=== PATIENT | female | born 1980 | race Caucasian/White ===

== ENCOUNTER 2016-05-18 12:12 | Emergency (ER) | payer OTHER ==
--- NOTE | 2016-05-18 13:25 | DIAGNOSTIC IMAGING REPORT ---
PROCEDURE: XR CHEST 1 VIEW INDICATION: Chest pain, shortness of breath, SVT TECHNIQUE: Single view chest. 1230 hours COMPARISON: 06/27/2015 FINDINGS: The cardiopulmonary contour and central vasculature are stable, within normal limits. The lungs are clear without focal consolidation, pleural effusion or pneumothorax. The osseous structures are intact. IMPRESSION: 1. No evidence of acute cardiopulmonary disease.
--- NOTE | 2016-05-18 16:17 | ED ORDER SUMMARY ---
..... Patient: SANJUANA MCGILL OrderSheet [facility] VisitID: [id number] [place] [address] 36y, F Registration Date/Time: 05/18/2016 ORDER SHEET Weight: 58.5 kg (stated) Allergies: No Known Drug Allergy GENERAL ORDERS: Chest 1V Urgent (12:20 05/18/2016 Steven Gardner) (Ack 12:22 KHoerner) (14:43 DDean R.N.) Consumer Sales Representative (Continuous) (SOB) (12:05/18/2016 Steven Gardner) (12:21 KHoerner) CBC w Diff Urgent (12:05/18/2016 Steven Gardner) (Ack 12:22 SAGRARIOoerner) (13:44 LSullivan R.N.) CMP Urgent (12:05/18/2016 Steven Gardnre) (Ack 12:22 KHoerner) (13:44 LSullivan R.N.) UA-Culture if indicated Urgent (12:05/18/2016 Steven Gardner) (Ack 12:22 SAGRARIOoeclementinener) (13:52 LSullivan R.N.) PT with INR Urgent (12:05/18/2016 Steven Gardner) (Ack 12:22 SAGRARIOoerner) (13:44 LSullivan R.N.) BNP Urgent (12:05/18/2016 Steven Gardner) (Ack 12:22 SAGRARIOoerner) (13:44 LSullivan R.N.) D-Dimer Urgent (12:05/18/2016 Steven Gardner) (Ack 12:22 SAGRARIOoerner) (13:44 LSullivan R.N.) Urine Drug Screen Urgent (12:05/18/2016 Steven Gardner) (Ack 12:22 KHoerner) (13:52 LSullivan R.N.) Urine Urgent (12:05/18/2016 Steven Gardner) (Ack 12:22 SAGRARIOoegerald) (13:52 LSullivan R.N.) Troponin-I Urgent (12:20 05/18/2016 Steven Gardner) (Ack 12:22 KHoerner) (13:44 Ramos R.N.) Pulse oximeter (12:20 05/18/2016 Steven Gardner) (12:21 oerner) EKG - ER Stat (12:20 05/18/2016 Steven Gardner) (12:21 oerner) TSH Urgent (12:57 05/18/2016 Steven Gardner) (Ack 12:59 oerner) (13:44 LSullivan R.N.) Troponin-I Urgent (15:25 05/18/2016 Steven Gardner) (Ack 15:31 oerner) (15:39 ALawrence ER Tech1) MEDICATION ORDERS: - (propranolol 20 mg PO once now) (12:59 05/18/2016 Steven Gardner) (13:44 Ramos R.N.) Keflex PO 500 mg (NOW) (15:27 05/18/2016 Steven Gardner) (15:32 JSanders R.N.) IV FLUIDS: IV Saline Lock (12:20 05/18/2016 Steven Gardner) (12:27 Ramos R.N.) ORDER SHEET NOTES: [Electronically signed by Julee Treviño R.N. (16:56 05/18/2016)] [Electronically signed by John Stewart Dr. (03:01 05/20/2016)] [Electronically locked/signed by Julee Treviño R.N. (16:56 05/18/2016)]
--- NOTE | 2016-05-18 16:17 | ED ORDER SUMMARY ---
..... Patient: SANJUANA MCGILL OrderSheet [facility] VisitID: [id number] [place] [address] 36y, F Registration Date/Time: 05/18/2016 ORDER SHEET Weight: 58.5 kg (stated) Allergies: No Known Drug Allergy GENERAL ORDERS: Chest 1V Urgent (12:20 05/18/2016 Steven Gardner) (Ack 12:22 KHoerner) (14:43 DDean R.N.) Credit Compliance Officer (Continuous) (SOB) (12:05/18/2016 Steven Gardner) (12:21 KHoerner) CBC w Diff Urgent (12:05/18/2016 Steven Gardner) (Ack 12:22 SAGRARIOoerner) (13:44 LSullivan R.N.) CMP Urgent (12:05/18/2016 Steven Gardner) (Ack 12:22 KHoerner) (13:44 LSullivan R.N.) UA-Culture if indicated Urgent (12:05/18/2016 Steven Gardner) (Ack 12:22 SAGRARIOoeclementinener) (13:52 LSullivan R.N.) PT with INR Urgent (12:05/18/2016 Steven Gardner) (Ack 12:22 SAGRARIOoerner) (13:44 LSullivan R.N.) BNP Urgent (12:05/18/2016 Steven Gardner) (Ack 12:22 SAGRARIOoerner) (13:44 LSullivan R.N.) D-Dimer Urgent (12:05/18/2016 Steven Gardner) (Ack 12:22 SAGRARIOoerner) (13:44 LSullivan R.N.) Urine Drug Screen Urgent (12:05/18/2016 Steven Gardner) (Ack 12:22 KHoerner) (13:52 LSullivan R.N.) Urine Urgent (12:05/18/2016 Steven Gardner) (Ack 12:22 SAGRARIOoegerald) (13:52 LSullivan R.N.) Troponin-I Urgent (12:20 05/18/2016 Steven Gardner) (Ack 12:22 KHoerner) (13:44 Ramos R.N.) Pulse oximeter (12:20 05/18/2016 Steven Gardner) (12:21 oerner) EKG - ER Stat (12:20 05/18/2016 Steven Gardner) (12:21 oerner) TSH Urgent (12:57 05/18/2016 Steven Gardner) (Ack 12:59 oerner) (13:44 LSullivan R.N.) Troponin-I Urgent (15:25 05/18/2016 Steven Gardner) (Ack 15:31 oerner) (15:39 ALawrence ER Tech1) MEDICATION ORDERS: - (propranolol 20 mg PO once now) (12:59 05/18/2016 Steven Gardner) (13:44 Ramos R.N.) Keflex PO 500 mg (NOW) (15:27 05/18/2016 Steven Gardner) (15:32 JSanders R.N.) IV FLUIDS: IV Saline Lock (12:20 05/18/2016 Steven Gardner) (12:27 Ramos R.N.) ORDER SHEET NOTES: [Electronically signed by Julee Treviño R.N. (16:56 05/18/2016)] [Electronically signed by John Stewart Dr. (03:01 05/20/2016)] [Electronically locked/signed by Julee Treviño R.N. (16:56 05/18/2016)]
--- NOTE | 2016-05-18 16:17 | ED NURSING NOTES ---
Clinical Report - [facility] [address] [place] [address] 05/18/2016 12:13 Patient: SANJUANA MCGILL TRIAGE Triage time 12:19. Chief Complaint: CHEST PAIN and DISCOMFORT and SHORTNESS OF BREATH. --12:24 Mila Carr R.N. 12:18 05/18/16. BP: 118/72. HR: 92. RR: 20. O2 saturation: 100% on room air. Temp: 97.9 F. Pain level now: 010. --12:24 Mila Carr R.N. Weight: 58.5 kg stated. Height/Length: 64 inches Per Patient. BMI: 22.2. --12:20 Mila Carr R.N. Medications Singulair Oral. --12:22 Mila Carr R.N. Allergies No Known Drug Allergy. --12:22 Mila Carr R.N. History Arrived by EMS, and (M46). Primary physician (Tony Cannon for cardiology). This started just prior to arrival and today. PAST MEDICAL HX: Immunizations: up-to-date. Last normal menstrual period- Mar 29 LMP. Denies current . SOCIAL HX: Never smoker. Alcohol use; consumes wine by the glass occasionally. No drug use. NUTRITIONAL RISK ASSESSMENT: The nutritional risk assessment revealed no deficiencies. --12:24 Mila Carr R.N. Accompanied by family. --12:24 Mila Carr R.N. PROBLEMS: Coronary Artery Disease. Chest Pain. Post- cardio-vascular spasms. Eczema. Paroxysmal Supraventricular Tachycardia. Arrhythmia. Asthma. Heart Disease. --12:22 Mila Carr R.N. ADDITIONAL SURGERIES: Cardiac Catheterization. Sinus Surgery. Tonsillectomy. [place] teeth. --12:23 Mila Carr R.N. Interventions ID band on patient. To room. --12:24 Mila Carr R.N. PHYSICAL ASSESSMENT 12:24 05/18/16. GENERAL / NEURO / PSYCH: Alert. Oriented X 4. Appears anxious. --12:24 Mila Carr R.N. GENERAL / NEURO / PSYCH: ( Pt felt her heart racing, and converted herself using a straw. Medics gave 324 mg Aspirin asset management analyst). --12:26 Mila Carr R.N. NURSING PROGRESS NOTES 12:05/18/16. Patient identifiers checked. Call light placed in reach. Bed placed in lowest position. Patient ready for evaluation- chart flagged. --12:24 Mila Carr R.N. 12:27 05/18/2016 Site #1 started prior to arrival by EMS via IV in the right antecubital space with an 20g angiocath, with aseptic technique and good blood return; one attempt. Blood drawn: rainbow set. Labeled in the presence of the patient and sent to the lab. Saline lock flushed with 10 mL saline (drawn by Meme Ruano). --12:27 Mila Carr R.N. EKG time: (1226). EKG was ordered, performed by a tech and shown to the ED physician. --12:40 Marybeth Zhou ER Tech1 13:34 05/18/2016 Propranolol PO 20 mg given. Allergies verified and confirmed 5 rights. --13:44 Mila Carr R.N. 13:52 05/18/16. ( Upon entering room, patient and her family were looking sad, apparently their father just , patient states she thinks that's what might have triggered her episode today.). --13:52 Mila Carr R.N. 13:55 05/18/16. Checked patient name and birthdate. Clean catch urine collected with return of yellow-colored clear urine; sample sent to lab for urinalysis, culture, drug screen and HCG. Specimen labeled in the presence of the patient. --13:55 Mila Carr R.N. 15:32 05/18/2016 Keflex (Cephalexin) PO Capsules 500 mg given. Allergies verified and confirmed 5 rights. --15:32 Julee Treviño R.N. 13:10 05/18/16. BP: 113/89 (regular adult cuff) taken on the left arm, while lying. HR: 90. RR: 18 (regular). O2 saturation: 96% on room air. --15:39 Julee Treviño R.N. 13:55 05/18/16. BP: 120/84 (regular adult cuff) taken on the left arm, while lying. HR: 81. RR: 18. O2 saturation: 100% on room air. --15:40 Julee Treviño R.N. 14:55 05/18/16. BP: 101/89 (regular adult cuff) taken on the left arm, while lying. HR: 75. RR: 20. O2 saturation: 99%. --15:41 Julee Treviño R.N. DISPOSITION / DISCHARGE 16:51 05/18/2016 Site #1 removed upon discharge. Bandaid applied. --16:51 Julee Treviño R.N. 16:51 05/18/16. Condition at departure: improved. No learning barriers present. Discharge instructions provided and reviewed with the patient. Reviewed medication(s) side effects, precautions and dosing information. Patient verbalized understanding. Written instructions provided in Sinhala. The patient was discharged by the physician. She was discharged home and accompanied by friend. She left the Emergency Department ambulatory and via private vehicle. Driving (friend). ( Patient discharged in good condition, leaving with friend who is pole truck driver). --16:51 Julee Treviño R.N. 16:46 05/18/16. BP: 101/67 (regular adult cuff) taken on the left arm, while sitting. HR: 79. RR: 18 (regular). O2 saturation: 99% on room air. Temp: 98.3 F (oral). Pain level now: 0/10. --16:51 Julee Treviño R.N. Locked/Released at 05/18/2016 16:56 by Julee Treviño R.N.
--- NOTE | 2016-05-18 16:17 | ED CLINICAL REPORT ---
Clinical Report - Physicians/Mid Levels [facility] [address] [place] [address] 05/18/2016 12:13 Patient: SANJUANA MCGILL Time Seen: 1240. Arrived- By ambulance. Historian- patient. HISTORY OF PRESENT ILLNESS Chief Complaint: PALPITATIONS and CHEST DISCOMFORT. It is described as a fast heart beat. Modifying factors- (worsened by stress. better with vagal maneuvers). This started today and is still present but is better now. It was abrupt in onset and has been constant but is not gone now. Onset during emotional upset. The patient has had difficulty breathing and chest pain. No sweating episodes, fainting episodes, dizziness, tingling or muscle spasms. ( reports hx of SVT. Resolved with "blowing through a straw." states her father pasted away suddenly from a heart attack yesterday). Treatment ALARM OPERATOR: (vagal). Similar symptoms previously: Many times. Recent medical care: Not recently seen/assessed. REVIEW OF SYSTEMS All systems otherwise negative, except as recorded above. PAST HISTORY See nurses notes. Heart rhythm problems with history of SVT. Medications: Singulair Oral. Allergies: No Known Drug Allergy. SOCIAL HISTORY Never smoker. No alcohol use or drug use. No recent travel. Is a local resident. ADDITIONAL NOTES The nursing notes have been reviewed. PHYSICAL EXAM Vital Signs: 05/18/2016 12:18 BP: 118/72. HR: 92. RR: 20. O2 saturation: 100%. Temp: 97.9 F. Pain level now: 0/10. Blood pressure normal. Oxygen saturation normal. Appearance: Alert. Oriented X3. No acute distress. (blonde hair). Eyes: Pupils equal, round and reactive to light. Eyes normal inspection. ENT: Ears normal. Nose normal. Neck: Normal inspection. Neck supple. No JVD. CVS: Normal heart rate and rhythm. Heart sounds normal. Pulses normal. Respiratory: No respiratory distress. Breath sounds normal. Chest nontender. No rales, rhonchi or wheezes. Abdomen: Soft and nontender. Bowel sounds normal. No mass. Back: Normal external inspection. Skin: Skin warm and dry. Normal skin color. No rash. Normal skin turgor. Extremities: Extremities exhibit normal ROM. No lower extremity edema. Neuro: Oriented X 3. No motor deficit. No sensory deficit. LABS, X-RAYS, AND EKG EKG: No acute process. No acute ischemia. Normal sinus rhythm. Rate: 92. Normal P waves. Normal TIERA. Normal QRS complex. Normal axis. Normal ST and T waves, QT and QTc. The study has been interpreted contemporaneously by me. The study has been independently viewed by me. Artifact present. Chest X-ray: No acute disease. Normal lung markings present. Normal heart size. Mediastinum normal. Great vessels normal. No infiltrate. Views: AP (portable). The X-rays were independently viewed by me and interpreted contemporaneously by me. Laboratory Tests: UA-Culture if indicated: (NHAN: 05/18/2016 13:49) ( MsgRcvd 05/18/2016 14:11) Final results Test Result Flag Units (Reference) URINE COLOR YELLOW URINE APPEARANCE CLEAR URINE GLUCOSE NEGATIVE (NEGATIVE) URINE BILIRUBIN NEGATIVE (NEGATIVE) URINE KETONE NEGATIVE (NEGATIVE) URINE SPECIFIC GRAVITY <= 1.005 L (1.010-1.030) URINE PH 6.0 (5.0-8.0) URINE PROTEIN NEGATIVE (NEGATIVE) URINE UROBILINOGEN 0.2 EU/dL (0.2-1.0) URINE NITRITE NEGATIVE (NEGATIVE) URINE BLOOD 2+ (NEGATIVE) URINE LEUK ESTERASE POSITIVE (NEGATIVE) URINE RBC 0-1 rbc/hpf (0-1) URINE WBC 1-3 wbc/hpf (0-1) URINE EPITHELIAL CELLS 1-3 EPI/hpf (0-5) URINE BACTERIA FEW (1+) (NONE SEEN) URINE COMMENT CULTURE INDICATED 1-3 HYALINE CAST. 2+ MUCOUSURINE CULTURES ARE SET-UP BASED ON THE FOLLOWING CRITERIA:POSITIVE NITRITEPOSITIVE LEUKOCYTE ESTERASEGREATER THAN 10 WHITE BLOOD CELLSMODERATE (2+) OR GREATER BACTERIA Urine: (NHAN: 05/18/2016 13:49) ( MsgRcvd 05/18/2016 14:01) Final results Test Result Flag Units (Reference) URINE NEGATIVE CBC w Diff: (NHAN: 05/18/2016 12:20) ( MsgRcvd 05/18/2016 12:35) Final results Test Result Flag Units (Reference) WHITE BLOOD COUNT 3.9 L K/uL (4.5-11.5) RED BLOOD COUNT 4.78 M/uL (4.00-5.20) HEMOGLOBIN 14.1 gm/dL (12.0-16.0) HEMATOCRIT 41.9 % (36.0-46.0) MEAN CELL VOLUME 88 fL (80-100) MEAN CORPUSCULAR HGB 30 pg (26-34) MEAN CORPUSCULAR HGB CONC 34 g/dL (31-37) RED CELL DISTRIBUTION WIDTH 12.4 % (11.6-14.8) PLATELET COUNT 292 K/uL (150-400) NEUTROPHIL % 57.3 % (50-75) LYMPH % 31.4 % (25-40) MONO % 8.8 % (3-14) EOSINOPHIL % 1.7 % (0-4) BASOPHIL % 0.8 % (0-2) PT with INR: (NHAN: 05/18/2016 12:35) ( MsgRcvd 05/18/2016 12:51) Final results Test Result Flag Units (Reference) INR 1.0 (0.8-1.2) Low Intensity Therapy: INR 1.5-2.0 PT range 18.5-23.1Mod.Intensity Therapy: INR 2.0-3.0 PT range 23.1-31.5High Intensity Therapy: INR 2.5-3.5 PT range 27.4-35.5High Intensity Therapy 2: INR 3.0-4.0 PT range 31.5-39.3 D-DIMER QUANTITATIVE < 0.27 L ug/mLFEU (0.27-0.52) The primary value of this quantitative assay relates toits negative predictive value (i.e. exclusion) of pulmonaryembolism/deep vein thrombosis/DIC.Elevated levels of d-dimer may also occur with:, age, cancer, inflammation, liver disease,post-op, infection, hematoma, coronary disease, peripheralarteriopathy, bleeding disorders and thrombolytic treatment.Results should be correlated with other clinical andradiological data.Testing Methodology: Latex Immunoassay Troponin-I: (NHAN: 05/18/2016 15:37) ( [facility] 05/18/2016 16:06) Final results Test Result Flag Units (Reference) TROPONIN I 0.49 ng/mL (0.00-1.5) TROPONIN REFERENCE RANGE:<0.1 NEGATIVE0.1-1.5 INDETERMINANT>1.5 POSITIVE TSH: (NHAN: 05/18/2016 11:25) ( [facility] 05/18/2016 13:21) Final results Test Result Flag Units (Reference) THYROID STIMULATING HORMONE 1.406 uIU/mL (0.34-3.74) Urine Drug Screen: (NHAN: 05/18/2016 13:49) ( [facility] 05/18/2016 14:12) Final results Test Result Flag Units (Reference) AMPHETAMINE/METHAMPHETAMINE NEGATIVE (NEGATIVE) BARBITURATE NEGATIVE (NEGATIVE) BENZODIAZEPINE NEGATIVE (NEGATIVE) CANNABINOID NEGATIVE (NEGATIVE) COCAINE NEGATIVE (NEGATIVE) ECSTASY NEGATIVE (NEGATIVE) METHADONE NEGATIVE (NEGATIVE) OPIATE POSITIVE H (NEGATIVE) The urine drug screen is a qualitative screening test fordrug overdose and abuse. All screen results should beconsidered as presumptive.Drugs screened for are as follows:BenzodiazepinesCocaineAmphetamines/MetamphetaminesTHC (Tetrahydrocannabinol)OpiatesBarbituratesEcstasyMethadonePositive results are unconfirmed. For confirmation, notifythe lab for the specimen to be sent to the reference lab.All confirmations must be performed by a differentmethodology.The ingestion of natural herbal and plant productscontaining Ephedra/Ephedra metabolites can produce in urineone or more substances capable of cross reacting withamphetamine/methamphetamine immunoassays. These testsprovide a preliminary result only. A more specificalternative chemical method must be used to obtain aconfirmed analytical result. BNP: (NHAN: 05/18/2016 11:25) ( MsgRcvd 05/18/2016 12:51) Final results Test Result Flag Units (Reference) B-TYPE NATRIURETIC PEPTIDE 11.2 pg/ml (5-100) CMP: (NHAN: 05/18/2016 11:25) ( MsgRcvd 05/18/2016 12:55) Final results Test Result Flag Units (Reference) GLUCOSE 95 mg/dL (70-110) BUN 11 mg/dL (7-18) CREATININE 0.9 mg/dL (0.6-1.3) Estimated GFR >60 mL/min Estimated GFR- >60 mL/min Note: Persistent reduction over 3 months in eGFR<60 mL/min/1.73 m2 defines CKD. Patients with eGFR values>=60 mL/min/1.73 m2 may also have CKD if evidence ofpersistent proteinuria. Additional information may be foundat www.kidney.org. SODIUM 142 mmol/L (136-145) POTASSIUM 4.0 mmol/L (3.5-5.1) CHLORIDE 106 mmol/L (98-107) CARBON DIOXIDE 26 mmol/L (21-32) CALCIUM 9.2 mg/dL (8.5-10.1) TOTAL PROTEIN 7.1 g/dL (6.4-8.2) ALBUMIN 3.5 g/dL (3.3-5.0) BILIRUBIN, TOTAL 1.8 H mg/dL (0.0-1.0) ALKALINE PHOSPHATASE 31 L U/L (46-116) AST (SGOT) 16 U/L (15-37) ALT (SGPT) 16 U/L (12-78) TROPONIN I 0.37 ng/mL (0.00-1.5) TROPONIN REFERENCE RANGE:<0.1 NEGATIVE0.1-1.5 INDETERMINANT>1.5 POSITIVE . PROGRESS AND PROCEDURES Course of Care: he patient is a pleasant 36-year-old female presenting for evaluation of"a supraventricular tachycardia. "The patient reports long history of supraventricular tachycardia. The patient also reports havinga recentsignificant assistance. Patient reports that a family member has recently . This is likely thetrigger for the patient's SVT. The patient had spontaneously converted prior to arrival here in the emergency depahat sometimes her heart rate getsover 2 Patient states that today's heart rate was probably around 230 Patient is currently resting in bed and in no acute distress. Temperature studies will be ordered for evaluation of any acute abnormalities from the SVT oras a potential triggerfor the SVT. Patient is agreeable to the treatment and plan. No other acute abnormalities noted on examination or history. Workup is otherwise unremarkable. EKG does not show any acuteST segment changes. Chest x-ray is also noted to be clear. Troponin 1 is also noted to be normal. Second troponin also be ordered. Second troponin has been ordered. And noted to be normal. Patient is resting in bed and in no acute distress. Patient has an updated about the return of her laboratory studies as well as theresults of her EKG and chest x-ray. Patient is a stable outpatient candidate. No other abnormal Patient apparently is well-versed in SVT andisvery understanding and when she needs to return to the emergency department. Do not feel patient needs to be admitted to the hospital at this time or require further emergency department workup/evaluation. Patient is nontoxic and in no acute distress. Discussed with patient workup, diagnosis, home care, follow-up, and return precautions. All questions have been answered. The patient expressed understanding of these instructions and was agreeable to them. Disposition: Discharged. Condition: good. CLINICAL IMPRESSION 05/18/2016 12:18 BP: 118/72. HR: 92. RR: 20. O2 saturation: 100%. Temp: 97.9 F. Pain level now: 0/10. Blood pressure normal. Oxygen saturation normal. Palpitations (acute SVT). Grief reaction with depressed mood (acute). INSTRUCTIONS Warnings: GENERAL WARNINGS: Return or contact your physician immediately if your condition worsens or changes unexpectedly, if not improving as expected, or if other problems arise. SPECIFICALLY, return if you develop chest, neck, jaw, shoulder, arm, or back pain, difficulty breathing, a fluttering sensation in your chest, lightheadedness, fainting, excessive fatigue, or sudden sweating. Your Current Medications: CONTINUE TAKING THE FOLLOWING MEDICATIONS: Singulair Oral. Prescription Medications: Propranolol 20 mg: take 1 orally every 8 hours. Dispense ten (10). No refills. (as needed for palpitations) Follow-up: Return to the emergency department as needed. Follow up with your doctor in three days. Reason for referral: recheck today's concerns. Summary of care provided to patient via paper. Screening today revealed the patient's blood pressure to be in the normal range. The patient should follow up with a primary care provider for blood pressure management. Understanding of the discharge instructions verbalized by patient. (Electronically signed by John Stewart Dr. 05/20/2016 3:01)
--- NOTE | 2016-05-18 16:17 | ED NURSING NOTES ---
Clinical Report - Nurses [facility] [address] [place] [address] 05/18/2016 12:13 Patient: SANJUANA MCGILL TRIAGE Triage time 12:19. Chief Complaint: CHEST PAIN and DISCOMFORT and SHORTNESS OF BREATH. --12:24 Mila Carr R.N. 12:18 05/18/16. BP: 118/72. HR: 92. RR: 20. O2 saturation: 100% on room air. Temp: 97.9 F. Pain level now: 010. --12:24 Mila Carr R.N. Weight: 58.5 kg stated. Height/Length: 64 inches Per Patient. BMI: 22.2. --12:20 Mila Carr R.N. Medications Singulair Oral. --12:22 Mila Carr R.N. Allergies No Known Drug Allergy. --12:22 Mila Carr R.N. History Arrived by EMS, and (M46). Primary physician (Tony Cannon for cardiology). This started just prior to arrival and today. PAST MEDICAL HX: Immunizations: up-to-date. Last normal menstrual period- Mar 29 LMP. Denies current . SOCIAL HX: Never smoker. Alcohol use; consumes wine by the glass occasionally. No drug use. NUTRITIONAL RISK ASSESSMENT: The nutritional risk assessment revealed no deficiencies. --12:24 Mila Carr R.N. Accompanied by family. --12:24 Mila Carr R.N. PROBLEMS: Coronary Artery Disease. Chest Pain. Post- cardio-vascular spasms. Eczema. Paroxysmal Supraventricular Tachycardia. Arrhythmia. Asthma. Heart Disease. --12:22 Mila Carr R.N. ADDITIONAL SURGERIES: Cardiac Catheterization. Sinus Surgery. Tonsillectomy. [place] teeth. --12:23 Mila Carr R.N. Interventions ID band on patient. To room. --12:24 Mila Carr R.N. PHYSICAL ASSESSMENT 12:24 05/18/16. GENERAL / NEURO / PSYCH: Alert. Oriented X 4. Appears anxious. --12:24 Mila Carr R.N. GENERAL / NEURO / PSYCH: ( Pt felt her heart racing, and converted herself using a straw. Medics gave 324 mg Aspirin cut filer). --12:26 Mila Carr R.N. NURSING PROGRESS NOTES 12:05/18/16. Patient identifiers checked. Call light placed in reach. Bed placed in lowest position. Patient ready for evaluation- chart flagged. --12:24 Mila Carr R.N. 12:27 05/18/2016 Site #1 started prior to arrival by EMS via IV in the right antecubital space with an 20g angiocath, with aseptic technique and good blood return; one attempt. Blood drawn: rainbow set. Labeled in the presence of the patient and sent to the lab. Saline lock flushed with 10 mL saline (drawn by Meme Ruano). --12:27 Mila Carr R.N. EKG time: (1226). EKG was ordered, performed by a tech and shown to the ED physician. --12:40 Marybeth Zhou ER Tech1 13:34 05/18/2016 Propranolol PO 20 mg given. Allergies verified and confirmed 5 rights. --13:44 Mila Carr R.N. 13:52 05/18/16. ( Upon entering room, patient and her family were looking sad, apparently their father just , patient states she thinks that's what might have triggered her episode today.). --13:52 Mila Carr R.N. 13:55 05/18/16. Checked patient name and birthdate. Clean catch urine collected with return of yellow-colored clear urine; sample sent to lab for urinalysis, culture, drug screen and HCG. Specimen labeled in the presence of the patient. --13:55 Mila Carr R.N. 15:32 05/18/2016 Keflex (Cephalexin) PO Capsules 500 mg given. Allergies verified and confirmed 5 rights. --15:32 Julee Treviño R.N. 13:10 05/18/16. BP: 113/89 (regular adult cuff) taken on the left arm, while lying. HR: 90. RR: 18 (regular). O2 saturation: 96% on room air. --15:39 Julee Treviño R.N. 13:55 05/18/16. BP: 120/84 (regular adult cuff) taken on the left arm, while lying. HR: 81. RR: 18. O2 saturation: 100% on room air. --15:40 Julee Treviño R.N. 14:55 05/18/16. BP: 101/89 (regular adult cuff) taken on the left arm, while lying. HR: 75. RR: 20. O2 saturation: 99%. --15:41 Julee Treviño R.N. DISPOSITION / DISCHARGE 16:51 05/18/2016 Site #1 removed upon discharge. Bandaid applied. --16:51 Julee Treviño R.N. 16:51 05/18/16. Condition at departure: improved. No learning barriers present. Discharge instructions provided and reviewed with the patient. Reviewed medication(s) side effects, precautions and dosing information. Patient verbalized understanding. Written instructions provided in Syriac. The patient was discharged by the physician. She was discharged home and accompanied by friend. She left the Emergency Department ambulatory and via private vehicle. Driving (friend). ( Patient discharged in good condition, leaving with friend who is long haul truck driver). --16:51 Julee Treviño R.N. 16:46 05/18/16. BP: 101/67 (regular adult cuff) taken on the left arm, while sitting. HR: 79. RR: 18 (regular). O2 saturation: 99% on room air. Temp: 98.3 F (oral). Pain level now: 0/10. --16:51 Julee Treviño R.N. Locked/Released at 05/18/2016 16:56 by Julee Treviño R.N.
--- NOTE | 2016-05-20 03:02 | ED MAR SUMMARY ---
..... Medication Administration Record [facility] [address] [place] [address] Patient: SANJUANA MCGILL Visit ID: [id number] 36y, F Weight: 58.5 kg Height/Length: 64 in BMI: 22.2 ALLERGIES: No Known Drug Allergy Given 13:34 05/18/2016 Mila Carr RKendrick Medication Administered: PROPRANOLOL [PO], Dose: 20 mg PO. Medication Ordered: - (propranolol 20 mg PO once now). Given 15:32 05/18/2016 Julee Treviño RKendrick Medication Administered: KEFLEX [PO] (CEPHALEXIN), Dose: 500 mg Capsules PO. Medication Ordered: Keflex PO 500 mg (NOW).
--- NOTE | 2016-05-20 03:02 | ED MED RECONCILIATION SUMMARY ---
Patient: ALEXANDERHUANHUBERT TRUJILLOSSIE Sincere Medication Reconciliation Report [facility] VisitID: [id number] [address] [place] [address] 36y, F Registration Date/Time: 05/18/2016 Weight: 58.5 kg Height/Length: 64 in. BMI: 22.2 ALLERGIES: No Known Drug Allergy The patient's Home Medications are listed below: CONTINUE TAKING THE FOLLOWING MEDICATIONS: Singulair Oral The source(s) of the original Home Medication information: Not obtained. The following Medications were given to the patient in the Emergency Department: Propranolol [PO] PO 20 mg, administered: 05/18/2016 1:34:00 PM Keflex [PO] PO 500 mg, administered: 05/18/2016 3:32:00 PM The following Medications were prescribed to the patient: Propranolol 20 mg: take 1 orally every 8 hours. Dispense ten (10). No refills.(as needed for palpitations) -- John Stewart Dr.
--- NOTE | 2016-05-20 03:02 | ED MED RECONCILIATION SUMMARY ---
Patient: ALEXANDERHUANHUBERT TRUJILLOSSIE Sincere Medication Reconciliation Report [facility] VisitID: [id number] [address] [place] [address] 36y, F Registration Date/Time: 05/18/2016 Weight: 58.5 kg Height/Length: 64 in. BMI: 22.2 ALLERGIES: No Known Drug Allergy The patient's Home Medications are listed below: CONTINUE TAKING THE FOLLOWING MEDICATIONS: Singulair Oral The source(s) of the original Home Medication information: Not obtained. The following Medications were given to the patient in the Emergency Department: Propranolol [PO] PO 20 mg, administered: 05/18/2016 1:34:00 PM Keflex [PO] PO 500 mg, administered: 05/18/2016 3:32:00 PM The following Medications were prescribed to the patient: Propranolol 20 mg: take 1 orally every 8 hours. Dispense ten (10). No refills.(as needed for palpitations) -- John Stewart Dr.
--- NOTE | 2016-05-20 03:02 | ED DISCHARGE INSTRUCTIONS ---
Patient: SANJUANA MCGILL General Instructions [facility] VisitID: [id number] [address] [place] [address] 36y, F Registration Date/Time: 05/18/2016 05/18/2016 12:18 BP: 118/72. HR: 92. RR: 20. O2 saturation: 100%. Temp: 97.9 F. Pain level now: 0/10. Blood pressure normal. Oxygen saturation normal. Palpitations (acute SVT). Grief reaction with depressed mood (acute). INSTRUCTIONS Warnings: GENERAL WARNINGS: Return or contact your physician immediately if your condition worsens or changes unexpectedly, if not improving as expected, or if other problems arise. SPECIFICALLY, return if you develop chest, neck, jaw, shoulder, arm, or back pain, difficulty breathing, a fluttering sensation in your chest, lightheadedness, fainting, excessive fatigue, or sudden sweating. Your Current Medications: CONTINUE TAKING THE FOLLOWING MEDICATIONS: Singulair Oral. Prescription Medications: Propranolol 20 mg: take 1 orally every 8 hours. Dispense ten (10). No refills. (as needed for palpitations) Follow-up: Return to the emergency department as needed. Follow up with your doctor in three days. Reason for referral: recheck today's concerns. Summary of care provided to patient via paper. Screening today revealed the patient's blood pressure to be in the normal range. The patient should follow up with a primary care provider for blood pressure management. Understanding of the discharge instructions verbalized by patient. ADDITIONAL INFORMATION Heart Palpitations Palpitations refers to the feeling that your heart is beating hard, fast or irregular. Some people describe it as "pounding" or "skipped beats". Palpitations may occur in persons with heart disease, but can also occur in healthy persons. Heart-Related Causes: Arrhythmia (a change from the heart's normal rhythm) Disease of the heart valves Piv-Hnwev-Svwjbfr Causes: Certain medicines (such as asthma inhalers and decongestants) Some herbal supplements, energy drinks and pills, and weight loss pills Illegal stimulant drugs (such as cocaine, crank, methamphetamine, PCP) Caffeine, alcohol and tobacco Medical conditions such as thyroid disease, anemia, anxiety and panic disorder Sometimes the cause cannot be found. Home Care: Avoid excess caffeine, alcohol, tobacco and any stimulant drugs. Tell your doctor about any prescription or cwzs-hku-fggwpob or herbal medicines you take. Follow Up with your doctor or as advised by our staff. Get Prompt Medical Attention if any of the following occur together with palpitations: Weakness, dizziness, light-headed or fainting Chest pain or shortness of breath Rapid heart rate (over 120 beats per minute, at rest) Palpitations that lasts over 20 minutes Weakness of an arm or leg or one side of the face Difficulty with speech or vision Arrhythmia Electrical impulses cause the normal heart to beat 60 to 100 times a minute. These impulses come from a natural pacemaker deep inside the heart muscle. Each impulse causes the heart muscle to contract. This causes the blood to flow through the heart and out to the tissues and organs of your body. An arrhythmia is a change from the normal speed or pattern of these electrical impulses. This can cause the heart to beat too fast (tachycardia); or too slow (bradycardia); or in an unsteady pattern (irregular rhythm). Symptoms of arrhythmias Different people experience arrhythmias differently. Sometimes they may not have symptoms, but just notice a change in their pulse. Symptoms can include: Fluttering feeling in the chest Shortness of breath Chest pain or pressure Lightheadedness or dizziness Fainting or nearly fainting Palpitations Tiredness, fatigue, or weakness Causes of arrhythmias Arrhythmias are most often due to heart disease such as: Coronary artery disease (arteriosclerosis) Disease of the heart valves Enlarged heart High blood pressure Heart failure Other causes ofarrhythmia include: Certain medicines (such as asthma inhalers and decongestants) Some herbal supplements Cardiac stimulant drugs (such as cocaine, amphetamine, diet pills, certain decongestant cold medicines, caffeine, and nicotine) Excessive alcohol use Medical conditions such as thyroid disease, anemia, anxiety, and panic disorder Arrythmias can often be prevented. The cause and type of arrhythmia determines the best treatment. Sometimes your doctor may want to monitor your heart rate over a 24-hour period or longer. This can help identify the cause of your arrhythmia and find the best treatment. This can be done with a Holter monitor,a portable EKG recording device attached by wires to your chest. You can carry this with you as you perform your routine activities during the monitoring period. Home care Avoid cardiac stimulants (such as cocaine, amphetamine, diet pills, certain decongestant cold medicines, caffeine, and nicotine). If you smoke, stop smoking. Contact your doctor or a local stop-smoking program for help. Tell your doctor about any prescription, hppt-qrc-woerlsx or herbal medicines you take. These may be affecting your heart rhythm. Follow-up care Follow up with your health care provider or as advised by our staff. If a Holter monitor has been recommended, contact the cardiologistyou have been referred toas soon as you canpick up the device. Other outpatient tests may also be arranged for you at that time. Call 911 This is the fastest and safest way to get to the emergency department. The paramedics can also start treatment on the way to the hospital, if needed. Don'twait until your symptoms are severe to call 911. Other reasons to call 911 besides chest pain include: Chest, shoulder, arm, neck, or back pain Shortness of breath Feeling lightheaded, faint, or dizzy Rapid heart beat Slower than usual heart rate compared to your normal Angina withweakness, dizziness, fainting, heavy sweating, nausea, or vomiting Extreme drowsiness, or confusion Weakness of an arm or leg or one side of the face Difficulty with speech or vision When to seek medical care Remember, things are not always like they are on TV. Sometimes it is not so obvious. You may only feel weak or just "not right." If it is not clear or if you have any doubt, call for advice. Seek help for chest pain, or it feels different from usual, even if your symptoms are mild. Do not drive yourself. Have someone else drive. If no one can drive you, call 911. If your doctor has given you medicines to take when you have symptoms, take them, but do not delay getting help while trying to find them. Do not delay. Fast diagnosis and treatment can prevent or limit the amount of heart damage during a heart attack or stroke. Do not go to your doctor's ofice or a clinic because they will not be able to provide all of the testing or treatment required for this condition. Grief Reaction Grief is the feeling that we all have when we lose someone that has been important in our life. Grief can last from months to years. The amount of time depends on different factors. These include how close the person was to you, and how much support you have through the grief process. Normal physical reactions to grief include loss of appetite or overeating, changes in weight, trouble getting to sleep or staying asleep, hair loss, stomach upset, cramping, diarrhea. Normal emotional reactions to grief include sadness, anxiety, feeling depressed or helpless, and difficulty concentrating. There may be a tendency to want to overwork or become so busy that you distract yourself from the intense pain you feel. Or you maylose all interest in work. Home Care: Allow yourself to feel the pain of your loss. For some, this can be a houser part of healing grief. Talk about your pain with others who understand. Share good memories that involve the person you lost. Take time for yourself. Make it a point to do things that you enjoy (gardening, walking in nature, going to a movie, etc.). Take care of your physical body. Eat a balanced diet (low in saturated fat and high in fruits and vegetables) and establish an exercise plan at least 3 times a week for 30 minutes. Even mild-moderate exercise (like brisk walking) can make you feel better. Get plenty of sleep. Avoid the use of alcohol and drugs to cover your emotional pain. This only slows down the emotional healing process. Do not isolate yourself from others. Have daily contact with family or friends. Talk about your loss to those closest to you. For additional support, meet with your shed boss/instrument sterilizer/rabbi, a counselor or therapist, or your own doctor. Consider joining a grief support group. Ask your doctor or our staff for information on how to find one in your area. If you have been prescribed a medicine to help with your symptoms, take it only as directed. Do not use it with alcohol. Follow Up with your doctor or as advised by our staff if you feel that your grief reaction is not responding to self-help measures. You may benefit from working with a trained counselor or therapist. Get Prompt Medical Attention if any of the following occur: Worsening symptoms Unable to eat or sleep for three days in a row Feeling extreme depression, fear, anxiety, or anger toward yourself or others Feeling out of control Feeling that you may try to harm yourself Propranolol Hydrochloride Oral tablet What is this medicine? PROPRANOLOL (proe PRAN oh lole) is a beta-luis. Beta-blockers reduce the workload on the heart and help it to beat more regularly. This medicine is used to treat high blood pressure, to control irregular heart rhythms (arrhythmias) and to relieve chest pain caused by angina. It may also be helpful after a heart attack. This medicine is also used to prevent migraine headaches, relieve uncontrollable shaking (tremors), and help certain problems related to the thyroid gland and adrenal gland. How should I use this medicine? Take this medicine by mouth with a glass of water. Follow the directions on the prescription label. Take your doses at regular intervals. Do not take your medicine more often than directed. Do not stop taking except on your the advice of your doctor or health healthcare associate. Talk to your home advisor regarding the use of this medicine in children. Special care may be needed. What side effects may I notice from receiving this medicine? Side effects that you should report to your doctor or health healthcare associate as soon as possible: allergic reactions like skin rash, itching or hives, swelling of the face, lips, or tongue breathing problems changes in blood sugar cold hands or feet difficulty sleeping, nightmares dry peeling skin hallucinations muscle cramps or weakness slow heart rate swelling of the legs and ankles vomiting Side effects that usually do not require medical attention (report to your doctor or health healthcare associate if they continue or are bothersome): change in sex drive or performance diarrhea dry sore eyes hair loss nausea weak or tired What may interact with this medicine? Do not take this medicine with any of the following medications: feverfew phenothiazines like chlorpromazine, mesoridazine, prochlorperazine, thioridazine sotalol This medicine may also interact with the following medications: aluminum hydroxide gel antipyrine barbiturates like phenobarbital cimetidine ciprofloxacin diazepam fluconazole haloperidol isoniazid medicines for cholesterol like cholestyramine or colestipol medicines to control heart rhythm medicines for high blood pressure medicines for HIV medicines for mental depression medicines for migraine headache like almotriptan, eletriptan, frovatriptan, naratriptan, rizatriptan, sumatriptan, zolmitriptan NSAIDs, medicines for pain and inflammation, like ibuprofen or naproxen phenytoin rifampin teniposide theophylline thyroid medicines tolbutamide warfarin zileuton What if I miss a dose? If you miss a dose, take it as soon as you can. If it is almost time for your next dose, take only that dose. Do not take double or extra doses. Where should I keep my medicine? Keep out of the reach of children. Store at room temperature between 15 and 30 degrees C (59 and 86 degrees F). Protect from light. Throw away any unused medicine after the expiration date. What should I tell my health care provider before I take this medicine? They need to know if you have any of these conditions: circulation problems or blood vessel disease diabetes history of heart attack or heart disease, vasospastic angina kidney disease liver disease lung or breathing disease, like asthma or emphysema pheochromocytoma slow heart rate thyroid disease an unusual or allergic reaction to propranolol, other beta-blockers, medicines, foods, dyes, or preservatives or trying to get breast-feeding What should I watch for while using this medicine? Visit your doctor or health healthcare associate for regular check ups. Check your blood pressure and pulse rate regularly. Ask your health healthcare associate what your blood pressure and pulse rate should be, and when you should contact them. You may get drowsy or dizzy. Do not drive, use machinery, or do anything that needs mental alertness until you know how this drug affects you. Do not stand or sit up quickly, especially if you are an older patient. This reduces the risk of dizzy or fainting spells. Alcohol can make you more drowsy and dizzy. Avoid alcoholic drinks. This medicine can affect blood sugar levels. If you have diabetes, check with your doctor or health healthcare associate before you change your diet or the dose of your diabetic medicine. Do not treat yourself for coughs, colds, or pain while you are taking this medicine without asking your doctor or health healthcare associate for advice. Some ingredients may increase your blood pressure. You have been given the following additional information: Palpitations Arrhythmia, Unspecified Grief Reaction Propranolol Hydrochloride Oral tablet (Electronically signed by John Stewart Dr. 05/20/2016 3:01)
--- NOTE | 2016-05-20 03:02 | ED MAR SUMMARY ---
..... Medication Administration Record [facility] [address] [place] [address] Patient: SANJUANA MCGILL Visit ID: [id number] 36y, F Weight: 58.5 kg Height/Length: 64 in BMI: 22.2 ALLERGIES: No Known Drug Allergy Given 13:34 05/18/2016 Mila Carr RKendrick Medication Administered: PROPRANOLOL [PO], Dose: 20 mg PO. Medication Ordered: - (propranolol 20 mg PO once now). Given 15:32 05/18/2016 Julee rTeviño RKendrick Medication Administered: KEFLEX [PO] (CEPHALEXIN), Dose: 500 mg Capsules PO. Medication Ordered: Keflex PO 500 mg (NOW).
--- NOTE | 2016-05-20 03:02 | ED DISCHARGE INSTRUCTIONS ---
Patient: SANJUANA MCGILL General Instructions [facility] VisitID: [id number] [address] [place] [address] 36y, F Registration Date/Time: 05/18/2016 05/18/2016 12:18 BP: 118/72. HR: 92. RR: 20. O2 saturation: 100%. Temp: 97.9 F. Pain level now: 0/10. Blood pressure normal. Oxygen saturation normal. Palpitations (acute SVT). Grief reaction with depressed mood (acute). INSTRUCTIONS Warnings: GENERAL WARNINGS: Return or contact your physician immediately if your condition worsens or changes unexpectedly, if not improving as expected, or if other problems arise. SPECIFICALLY, return if you develop chest, neck, jaw, shoulder, arm, or back pain, difficulty breathing, a fluttering sensation in your chest, lightheadedness, fainting, excessive fatigue, or sudden sweating. Your Current Medications: CONTINUE TAKING THE FOLLOWING MEDICATIONS: Singulair Oral. Prescription Medications: Propranolol 20 mg: take 1 orally every 8 hours. Dispense ten (10). No refills. (as needed for palpitations) Follow-up: Return to the emergency department as needed. Follow up with your doctor in three days. Reason for referral: recheck today's concerns. Summary of care provided to patient via paper. Screening today revealed the patient's blood pressure to be in the normal range. The patient should follow up with a primary care provider for blood pressure management. Understanding of the discharge instructions verbalized by patient. ADDITIONAL INFORMATION Heart Palpitations Palpitations refers to the feeling that your heart is beating hard, fast or irregular. Some people describe it as "pounding" or "skipped beats". Palpitations may occur in persons with heart disease, but can also occur in healthy persons. Heart-Related Causes: Arrhythmia (a change from the heart's normal rhythm) Disease of the heart valves Tyo-Yejde-Ovfmnzd Causes: Certain medicines (such as asthma inhalers and decongestants) Some herbal supplements, energy drinks and pills, and weight loss pills Illegal stimulant drugs (such as cocaine, crank, methamphetamine, PCP) Caffeine, alcohol and tobacco Medical conditions such as thyroid disease, anemia, anxiety and panic disorder Sometimes the cause cannot be found. Home Care: Avoid excess caffeine, alcohol, tobacco and any stimulant drugs. Tell your doctor about any prescription or awgu-uzl-tjzmuhj or herbal medicines you take. Follow Up with your doctor or as advised by our staff. Get Prompt Medical Attention if any of the following occur together with palpitations: Weakness, dizziness, light-headed or fainting Chest pain or shortness of breath Rapid heart rate (over 120 beats per minute, at rest) Palpitations that lasts over 20 minutes Weakness of an arm or leg or one side of the face Difficulty with speech or vision Arrhythmia Electrical impulses cause the normal heart to beat 60 to 100 times a minute. These impulses come from a natural pacemaker deep inside the heart muscle. Each impulse causes the heart muscle to contract. This causes the blood to flow through the heart and out to the tissues and organs of your body. An arrhythmia is a change from the normal speed or pattern of these electrical impulses. This can cause the heart to beat too fast (tachycardia); or too slow (bradycardia); or in an unsteady pattern (irregular rhythm). Symptoms of arrhythmias Different people experience arrhythmias differently. Sometimes they may not have symptoms, but just notice a change in their pulse. Symptoms can include: Fluttering feeling in the chest Shortness of breath Chest pain or pressure Lightheadedness or dizziness Fainting or nearly fainting Palpitations Tiredness, fatigue, or weakness Causes of arrhythmias Arrhythmias are most often due to heart disease such as: Coronary artery disease (arteriosclerosis) Disease of the heart valves Enlarged heart High blood pressure Heart failure Other causes ofarrhythmia include: Certain medicines (such as asthma inhalers and decongestants) Some herbal supplements Cardiac stimulant drugs (such as cocaine, amphetamine, diet pills, certain decongestant cold medicines, caffeine, and nicotine) Excessive alcohol use Medical conditions such as thyroid disease, anemia, anxiety, and panic disorder Arrythmias can often be prevented. The cause and type of arrhythmia determines the best treatment. Sometimes your doctor may want to monitor your heart rate over a 24-hour period or longer. This can help identify the cause of your arrhythmia and find the best treatment. This can be done with a Holter monitor,a portable EKG recording device attached by wires to your chest. You can carry this with you as you perform your routine activities during the monitoring period. Home care Avoid cardiac stimulants (such as cocaine, amphetamine, diet pills, certain decongestant cold medicines, caffeine, and nicotine). If you smoke, stop smoking. Contact your doctor or a local stop-smoking program for help. Tell your doctor about any prescription, wphs-mwy-qrfdjik or herbal medicines you take. These may be affecting your heart rhythm. Follow-up care Follow up with your health care provider or as advised by our staff. If a Holter monitor has been recommended, contact the cardiologistyou have been referred toas soon as you canpick up the device. Other outpatient tests may also be arranged for you at that time. Call 911 This is the fastest and safest way to get to the emergency department. The paramedics can also start treatment on the way to the hospital, if needed. Don'twait until your symptoms are severe to call 911. Other reasons to call 911 besides chest pain include: Chest, shoulder, arm, neck, or back pain Shortness of breath Feeling lightheaded, faint, or dizzy Rapid heart beat Slower than usual heart rate compared to your normal Angina withweakness, dizziness, fainting, heavy sweating, nausea, or vomiting Extreme drowsiness, or confusion Weakness of an arm or leg or one side of the face Difficulty with speech or vision When to seek medical care Remember, things are not always like they are on TV. Sometimes it is not so obvious. You may only feel weak or just "not right." If it is not clear or if you have any doubt, call for advice. Seek help for chest pain, or it feels different from usual, even if your symptoms are mild. Do not drive yourself. Have someone else drive. If no one can drive you, call 911. If your doctor has given you medicines to take when you have symptoms, take them, but do not delay getting help while trying to find them. Do not delay. Fast diagnosis and treatment can prevent or limit the amount of heart damage during a heart attack or stroke. Do not go to your doctor's ofice or a clinic because they will not be able to provide all of the testing or treatment required for this condition. Grief Reaction Grief is the feeling that we all have when we lose someone that has been important in our life. Grief can last from months to years. The amount of time depends on different factors. These include how close the person was to you, and how much support you have through the grief process. Normal physical reactions to grief include loss of appetite or overeating, changes in weight, trouble getting to sleep or staying asleep, hair loss, stomach upset, cramping, diarrhea. Normal emotional reactions to grief include sadness, anxiety, feeling depressed or helpless, and difficulty concentrating. There may be a tendency to want to overwork or become so busy that you distract yourself from the intense pain you feel. Or you maylose all interest in work. Home Care: Allow yourself to feel the pain of your loss. For some, this can be a houser part of healing grief. Talk about your pain with others who understand. Share good memories that involve the person you lost. Take time for yourself. Make it a point to do things that you enjoy (gardening, walking in nature, going to a movie, etc.). Take care of your physical body. Eat a balanced diet (low in saturated fat and high in fruits and vegetables) and establish an exercise plan at least 3 times a week for 30 minutes. Even mild-moderate exercise (like brisk walking) can make you feel better. Get plenty of sleep. Avoid the use of alcohol and drugs to cover your emotional pain. This only slows down the emotional healing process. Do not isolate yourself from others. Have daily contact with family or friends. Talk about your loss to those closest to you. For additional support, meet with your dye house helper/deck steward/rabbi, a counselor or therapist, or your own doctor. Consider joining a grief support group. Ask your doctor or our staff for information on how to find one in your area. If you have been prescribed a medicine to help with your symptoms, take it only as directed. Do not use it with alcohol. Follow Up with your doctor or as advised by our staff if you feel that your grief reaction is not responding to self-help measures. You may benefit from working with a trained counselor or therapist. Get Prompt Medical Attention if any of the following occur: Worsening symptoms Unable to eat or sleep for three days in a row Feeling extreme depression, fear, anxiety, or anger toward yourself or others Feeling out of control Feeling that you may try to harm yourself Propranolol Hydrochloride Oral tablet What is this medicine? PROPRANOLOL (proe PRAN oh lole) is a beta-luis. Beta-blockers reduce the workload on the heart and help it to beat more regularly. This medicine is used to treat high blood pressure, to control irregular heart rhythms (arrhythmias) and to relieve chest pain caused by angina. It may also be helpful after a heart attack. This medicine is also used to prevent migraine headaches, relieve uncontrollable shaking (tremors), and help certain problems related to the thyroid gland and adrenal gland. How should I use this medicine? Take this medicine by mouth with a glass of water. Follow the directions on the prescription label. Take your doses at regular intervals. Do not take your medicine more often than directed. Do not stop taking except on your the advice of your doctor or health care management coordinator. Talk to your exercise physiologist regarding the use of this medicine in children. Special care may be needed. What side effects may I notice from receiving this medicine? Side effects that you should report to your doctor or health care management coordinator as soon as possible: allergic reactions like skin rash, itching or hives, swelling of the face, lips, or tongue breathing problems changes in blood sugar cold hands or feet difficulty sleeping, nightmares dry peeling skin hallucinations muscle cramps or weakness slow heart rate swelling of the legs and ankles vomiting Side effects that usually do not require medical attention (report to your doctor or health care management coordinator if they continue or are bothersome): change in sex drive or performance diarrhea dry sore eyes hair loss nausea weak or tired What may interact with this medicine? Do not take this medicine with any of the following medications: feverfew phenothiazines like chlorpromazine, mesoridazine, prochlorperazine, thioridazine sotalol This medicine may also interact with the following medications: aluminum hydroxide gel antipyrine barbiturates like phenobarbital cimetidine ciprofloxacin diazepam fluconazole haloperidol isoniazid medicines for cholesterol like cholestyramine or colestipol medicines to control heart rhythm medicines for high blood pressure medicines for HIV medicines for mental depression medicines for migraine headache like almotriptan, eletriptan, frovatriptan, naratriptan, rizatriptan, sumatriptan, zolmitriptan NSAIDs, medicines for pain and inflammation, like ibuprofen or naproxen phenytoin rifampin teniposide theophylline thyroid medicines tolbutamide warfarin zileuton What if I miss a dose? If you miss a dose, take it as soon as you can. If it is almost time for your next dose, take only that dose. Do not take double or extra doses. Where should I keep my medicine? Keep out of the reach of children. Store at room temperature between 15 and 30 degrees C (59 and 86 degrees F). Protect from light. Throw away any unused medicine after the expiration date. What should I tell my health care provider before I take this medicine? They need to know if you have any of these conditions: circulation problems or blood vessel disease diabetes history of heart attack or heart disease, vasospastic angina kidney disease liver disease lung or breathing disease, like asthma or emphysema pheochromocytoma slow heart rate thyroid disease an unusual or allergic reaction to propranolol, other beta-blockers, medicines, foods, dyes, or preservatives or trying to get breast-feeding What should I watch for while using this medicine? Visit your doctor or health care management coordinator for regular check ups. Check your blood pressure and pulse rate regularly. Ask your health care management coordinator what your blood pressure and pulse rate should be, and when you should contact them. You may get drowsy or dizzy. Do not drive, use machinery, or do anything that needs mental alertness until you know how this drug affects you. Do not stand or sit up quickly, especially if you are an older patient. This reduces the risk of dizzy or fainting spells. Alcohol can make you more drowsy and dizzy. Avoid alcoholic drinks. This medicine can affect blood sugar levels. If you have diabetes, check with your doctor or health care management coordinator before you change your diet or the dose of your diabetic medicine. Do not treat yourself for coughs, colds, or pain while you are taking this medicine without asking your doctor or health care management coordinator for advice. Some ingredients may increase your blood pressure. You have been given the following additional information: Palpitations Arrhythmia, Unspecified Grief Reaction Propranolol Hydrochloride Oral tablet (Electronically signed by John Stewart Dr. 05/20/2016 3:01)
== END 2016-05-18 16:55 | disposition home or self-care (01) ==
LOC: ED SRH 12:12
DX: R00.2 Palpitations (principal); F43.21 Adjustment disorder with depressed mood
CPT/HCPCS: 90004; 90074; 90100; 90469; 90616; 91320; 91556; 92760; 92761; 92762; 92763; 92764; 92765; 92766; 92767; 93070; 93140; 94060; 95059